=== PATIENT | male | born 1965 ===

== ENCOUNTER 2017-02-25 17:19 | Emergency (ER) | payer SELFPAY ==
[2017-02-25] MEDS ORDERED: Albuterol 0.083% Inhal Sol (2.5 mg/3 mL) UD ONE (17:53)
[2017-02-25] MEDS ORDERED: Albuterol 0.083% Inhal Sol (2.5 mg/3 mL) UD INH STA (17:58)
[2017-02-25 18:34] LABS: BASO # 0.1 K/uL (0.0-0.2); BASO % 0.8 % (0.0-2.0); EOS # 0.1 K/uL (0.0-0.7); EOS % 1.3 % (0.0-4.0); HEMOGLOBIN 14.9 g/dL (12.0-18.0); LYMPH # 3.1 K/uL (1.0-4.3); LYMPH % 31.2 % (20.0-40.0); MEAN CELL VOLUME 85.6 fL (80.0-94.0); MEAN CORPUSCULAR HEMOGLOBIN 28.6 pg (27.0-31.0); MEAN CORPUSCULAR HGB CONC 33.5 g/dL (33.0-37.0); MEAN PLATELET VOLUME 8.5 fL (7.2-11.7); MONO # 0.8 K/uL (0.0-0.8); MONO % 7.5 % (0.0-10.0); NEUT % 59.2 % (50.0-75.0); NRBC % 0.1 % (0.0-2.0); RBC 5.21 Mil/uL (4.40-5.90); RED CELL DISTRIBUTION WIDTH 13.1 % (11.5-14.5); WHITE BLOOD COUNT 10.1 K/uL (4.8-10.8)
[2017-02-25 18:41] LABS: ALBUMIN 4.4 g/dL (3.5-5.0)
[2017-02-25 18:44] LABS: ALB/GLOB RATIO 1.1 (1.0-2.1); AST/SGOT 41 U/L (17-59); GFR AFRICAN-AMERICAN > 60; GFR NON-AFRICAN AMERICAN > 60
[2017-02-25 18:45] LABS: ALT/SGPT 49 U/L (21-72); BLOOD UREA NITROGEN 13 mg/dL (9-20); CALCIUM 9.4 mg/dl (8.6-10.4)
--- NOTE | 2017-02-25 19:49 | C.PDOC ---
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 pt does not have air conditioning at home. pt sts he was diagnosed with asthma 15 years ago in another ER when he felt similar to today, has no inhaler and had no further episodes since then. pt denies chest pain, cough,fever, chills. no recent surgery or prolonged immobilization. Time Seen by Provider: 02/25/17 17:37 Chief Complaint (Nursing): Shortness Of Breath History Per: Patient Onset/Duration Of Symptoms: Days (2) Current Symptoms Are (Timing): Better (in air conditioned room) Initiating Event: Other (heat and humidity exposure) Associated Symptoms: denies: Fever, Chills, Chest Pain, Productive Cough, Leg/ Calf Pain, Dizziness Reports Recently: Seen In ED (15 years ago) Past Medical History Vital Signs: Last Vital Signs Temp 98.5 F 02/25/17 20:22 Pulse 75 02/25/17 20:22 Resp 20 02/25/17 20:22 BP 146/64 02/25/17 20:22 Pulse Ox 98 02/27/17 08:52 - Medical History PMH: Asthma Family History: States: Unknown Family Hx - Social History Hx Alcohol Use: Yes Hx Substance Use: No Review Of Systems Constitutional: Negative for: Fever, Chills Cardiovascular: Negative for: Chest Pain, Palpitations, Light Headedness Respiratory: Positive for: Shortness of Breath. Negative for: Cough Gastrointestinal: Negative for: Nausea, Vomiting, Abdominal Pain Neurological: Negative for: Weakness, Numbness Physical Exam - Physical Exam Appears: Non-toxic, No Acute Distress Skin: Warm, Dry, No Diaphoretic Head: Atraumatic, Normacephalic Oral Mucosa: Dry (mild) Lips: Normal Appearing Neck: Normal ROM Chest: Symmetrical, No Deformity, No Tenderness Cardiovascular: Rhythm Regular, No Murmur Respiratory: Normal Breath Sounds, No Accessory Muscle Use, No Rales, No Rhonchi , No Stridor, No Wheezing Gastrointestinal/Abdominal: Soft, No Tenderness Back: Normal Inspection Extremity: Normal ROM, No Pedal Edema, No Calf Tenderness Neurological/Psych: Oriented x3, Normal Speech, Normal Cognition ED Course And Treatment - Laboratory Results Result Diagrams: 02/25/17 18:30 02/25/17 18:30 ECG: Interpreted By Me, Viewed By Me ECG Rhythm: Sinus Rhythm ECG Interpretation: Abnormal Interpretation Of ECG: min vltage criteria for lvh, inf infarct age undetermined , Rate From EC O2 Sat by Pulse Oximetry: 98 Pulse Ox Interpretation: Normal - Radiology CXR: Interpreted by Me, Viewed By Me CXR Interpretation: Yes: No Acute Disease. No: Infiltrates Medical Decision Making Medical Decision Making: pt is feeling better, breathing feels normal. pt advised to stay where there is air conditioning when it is very hot out. pt also advised his blood sugar is elevated and he needs to f/u in medical clinic for further eval, needs to drink more fluids. Disposition - Disposition Referrals: [facility] [Outside] [facility] [Outside] Disposition: HOME/ ROUTINE Disposition Time: 19:54 Condition: IMPROVED Additional Instructions: Seguimiento en la clnica mdica para un chequeo completo y evaluacin adicional de pena azcar. Se elev aqu en la anjel de emergencias en 165. Intente permanecer en el aire acondicionado cuando est muy caliente. [place] para allerigies si es necesario. Vuelva a la anjel de emergencia por cualquier dificultad para respirar, dolor en el pecho, falta de aliento o cualquier otra preocupacin por los sntomas. Prescriptions: Loratadine [Claritin] 10 mg PO DAILY PRN #10 tab PRN Reason: Allergy Symptoms Instructions: Dyspnea (ED), Hyperglycemia, Non-Diabetic (ED) Forms: Gen Discharge Inst Polish, Work Excuse Print Language: WELSH - Clinical Impression Clinical Impression: Dyspnea
[2017-02-25 19:51] LABS: URINE BILIRUBIN NEGATIVE (NEGATIVE); URINE BLOOD NEGATIVE (NEGATIVE); URINE CLARITY Clear (Clear); URINE COLOR Straw (YELLOW); URINE GLUCOSE (UA) NORMAL (Normal); URINE LEUKOCYTE ESTERASE NEG Leu/uL (Negative); URINE NITRATE NEGATIVE (NEGATIVE); URINE PROTEIN NEGATIVE (NEGATIVE); URINE UROBILINOGEN NORMAL mg/dL (0.2-1.0)
[2017-02-25 20:01] LABS: BENZODIAZEPINES, UR NEGATIVE (NEGATIVE)
[2017-02-25 20:02] LABS: BARBITURATES, UR NEGATIVE (NEGATIVE)
[2017-02-25 20:04] LABS: OPIATES, UR NEGATIVE (NEGATIVE)
[2017-02-25 20:05] LABS: PHENCYCLIDINE, UR NEGATIVE (NEGATIVE)
[2017-02-25 20:23] VITALS: BP 146/64; PULSE 75; RESP 20; TEMP 98.5
--- NOTE | 2017-02-26 09:18 | RAD ---
HISTORY: SOB COMPARISON: No prior. TECHNIQUE: Chest PA and lateral FINDINGS: LUNGS: No active pulmonary disease. PLEURA: No significant pleural effusion identified. No pneumothorax apparent. CARDIOVASCULAR: No radiographic findings to suggest acute or significant cardiovascular disease. OSSEOUS STRUCTURES: No significant abnormalities. VISUALIZED UPPER ABDOMEN: Normal. OTHER FINDINGS: None. IMPRESSION: No active disease. Concordant results with the preliminary interpretation rendered by the emergency department physician procedure.
--- NOTE | 2017-02-26 11:02 | CARD ---
APPROVED REPORT EKG Measurement Heart [id number] <Conclusion> Normal sinus rhythm Minimal voltage criteria for LVH, may be normal variant Inferior infarct, age undetermined Abnormal ECG
[2017-02-27 12:45] VITALS: O2SAT 98
== END 2017-02-25 20:22 | disposition home or self-care (01) ==
LOC: C.ER 17:19
DX: R06.00 Dyspnea, unspecified (principal)
CPT/HCPCS: 71020; 80053; 81001; 84484; 85025; 85378; 93005; 99284; G0480